=== PATIENT | female | born 2000 | race Caucasian/White ===

== ENCOUNTER 2025-03-02 16:57 | Emergency (ER) | payer OTHER, MEDICAID ==
[~2025-03-02] VITALS: Ht 154.9 cm; Wt 73.0 kg
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
[2025-03-02 19:05] VITALS: BP 112/63; PULSE 78; RESP 16; TEMP 98.4; O2SAT 97
[2025-03-02] MEDS ORDERED: ACET500T58 PO (19:05)
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
== END 2025-03-02 19:19 | disposition home or self-care (01) ==
LOC: ER 17:03
DX: S09.8XXA Other specified injuries of head, initial encounter (principal); S29.012A Strain of muscle and tendon of back wall of thorax, initial encounter; M54.6 Pain in thoracic spine; V29.99XA Rider (driver) (passenger) of other motorcycle injured in unspecified traffic accident, initial encounter; Y93.89 Activity, other specified; Y92.410 Unspecified street and highway as the place of occurrence of the external cause; Y99.8 Other external cause status
CPT/HCPCS: 72070